=== PATIENT | male | born 1985 | race African-American/Black ===

== ENCOUNTER 2016-12-20 16:44 | Emergency (ER) | payer SELFPAY ==
[~2016-12-20] VITALS: Ht 175.3 cm; Wt 90.0 kg
[2016-12-20 16:46] VITALS: BP 159/101; PULSE 89; RESP 14; TEMP 98; O2SAT 98
[2016-12-20] MEDS ORDERED: MOME17I EACH NARE (17:39)
[2016-12-20] MEDS ORDERED: IBUP800T23 PO (17:39)
[2016-12-20] MEDS ORDERED: AMOX500C PO (17:39)
--- NOTE | 2016-12-20 17:40 | PD ---
HPI Chief Complaint: Cold / Flu Symptoms Time Seen by Provider: 17:38 Travel History International Travel<30 days: No Contact w/Intl Traveler<30days: No Traveled to known affect area: No History of Present Illness HPI 31-year-old male presents to the emergency Department with complaint of nasal congestion and bilateral ear fullness/pressure since mid September. He denies fever, chills, nausea or vomiting. Denies sore throat. Says his voice is hoarse. Reports occasional cough. Says the symptoms have been constant since mid September. They have not gone away at all. He has tried multiple over-the- counter medications with no relief of symptoms. He just started taking Zyrtec yesterday and has not noticed improvement in his symptoms as of yet. Denies chest pain, shortness of breath, abdominal pain. No known allergies. Does not have an established primary care provider. No other modifying factors or associated signs and symptoms. PFSH Social History Tobacco Use: No Allergies-Medications (Allergen,Severity, Reaction): Coded Allergies: No Known Allergies (Unverified , 12/20/16) Reported Meds & Prescriptions Reported Meds & Active Scripts Active Ibuprofen 800 Mg Tab 800 Mg PO Q6HR PRN Nasonex Nasal [place] (Mometasone Furoate) 50 Mcg/Act Naspr 2 [place] EACH NARE DAILY Amoxicillin 500 Mg Cap 500 Mg PO BID 10 Days Review of Systems Except as stated in HPI: all other systems reviewed are Neg Physical Exam Narrative GENERAL: Well-nourished, well-developed male patient, in no acute distress; afebrile, nontoxic-appearing SKIN: Warm and dry. No rash. HEAD: Atraumatic. Normocephalic. EYES: Pupils equal and round at 3 mm with brisk reaction. No scleral icterus. No injection or drainage. PERRLA. ENT: Mucosa pink and moist. No erythema or exudates. No uvular edema. No uvular , palatal, or tonsillar deviation. Airway patent. Nasal congestion noted. Voice is hoarse. EARS: Bilateral pinnae and external canals appear within normal limits. Bilateral tympanic membranes without erythema, dullness or perforation. NECK: Trachea midline. No lymphadenopathy. CARDIOVASCULAR: Regular rate and rhythm. No murmur appreciated. RESPIRATORY: No accessory muscle use. Clear to auscultation. Breath sounds equal bilaterally. GASTROINTESTINAL: Abdomen soft, non-tender, nondistended. Hepatic and splenic margins not palpable. Bowel sounds are active 4 quadrants. MUSCULOSKELETAL: No obvious deformities. No clubbing. No cyanosis. No edema. NEUROLOGICAL: Awake and alert. Oriented 3. No obvious cranial nerve deficits. Motor grossly within normal limits. Normal speech. Moves all extremities. 5/5 strength to all extremities. PSYCHIATRIC: Appropriate mood and affect; insight and judgment normal. Data Data Last Documented VS Vital Signs Date Time Temp Pulse Resp B/P Pulse Ox O2 Delivery O2 Flow Rate FiO2 12/20/16 16:46 98.0 89 14 159/101 98 Room Air MDM Medical Decision Making Medical Screen Exam Complete: Yes Emergency Medical Condition: Yes Medical Record Reviewed: Yes Differential Diagnosis Allergic rhinitis, sinusitis, upper respiratory infection, laryngitis Narrative Course 31-year-old male physical examination consistent with allergic rhinitis. Patient presents with current symptoms since mid September. Patient is afebrile and nontoxic-appearing. He denies fever, chills, nausea, vomiting. Discussed allergic rhinitis. Instructed patient to continue Zyrtec as directed. Patient requesting antibiotics. I discussed antibiotics and allergic rhinitis and the patient would still like a prescription. Amoxicillin, Nasonex nasal spray, ibuprofen prescribed for home. Patient verbalizes understanding and agreement with treatment plan. Patient is medically cleared and stable for discharge. Discussed reasons to return to the emergency department. Instructed patient to follow up with primary care provider. Patient agrees with treatment plan. The patients vital signs are stable and the patient is stable for outpatient follow- up and treatment. Patient discharged home, stable and in no acute distress. Diagnosis Primary Impression: Allergic rhinitis Qualified Code: J30.9 - Allergic rhinitis, unspecified allergic rhinitis trigger, unspecified rhinitis seasonality Referrals: Primary Care Physician Patient Instructions: Allergic Rhinitis (ED), General Instructions Departure Forms: Tests/Procedures, Work Release Enter return to work date: Dec 21, 2016 Additional Instructions: Ibuprofen or Tylenol as instructed and as needed for fever/pain [id number] antihistamines or decongestants as directed and as needed for symptom management Get plenty of sleep/rest Drink plenty of fluids to prevent dehydration; popsicles and Gatorade Use an air humidifier/turn off ceiling fans Follow-up with primary care provider Return immediately to the emergency department with worsening of symptoms Med/Other Pt SpecificInfo: Prescription(s) given Scripts Ibuprofen 800 Mg [id number] Mg PO Q6HR PRN (PAIN) #30 TAB Ref 0 Prov:Arti Parra 12/20/16 Mometasone Nasal [place] (Nasonex Nasal [place])50 Mcg/Act Naspr2 [place] EACH NARE DAILY #1 BOTTLE Ref 0 Prov:Arti Parra 12/20/16 Amoxicillin 500 Mg [id number] Mg PO BID 10 Days Ref 0 Prov:Arti Parra 12/20/16 Disposition: 01 DISCHARGE HOME Condition: Stable Arti Parra Dec 20, 2016 17:40
[2016-12-20 17:43] VITALS: BP 144/94
== END 2016-12-20 17:51 | disposition home or self-care (01) ==
LOC: NETRI 16:44
DX: J30.9 Allergic rhinitis, unspecified (principal)
CPT/HCPCS: 99283